=== PATIENT | female | born 1955 | race Caucasian/White ===

== ENCOUNTER → 2019-05-28 | Outpatient (CLI) | payer OTHER ==
[2019-05-28 13:58] LABS: BASO % 1 % (0-3); EOS # 0.1 x10^3/uL (0.0-0.7); EOS % 3 % (0-3); HEMATOCRIT 40.5 % (36.0-47.0); HEMOGLOBIN 13.6 g/dL (12.0-15.5); LYMPH # 0.8 x10^3/uL (1.0-4.8); LYMPH % 24 % (24-48); MEAN CORPUSCULAR HEMOGLOBIN 31 pg (25-35); MEAN CORPUSCULAR HGB CONC 34 g/dL (31-37); MEAN CORPUSCULAR VOLUME 92 fL (79-100); MONO # 0.3 x10^3/uL (0.0-1.1); MONO % 9 % (0-9); NEUT # 2.2 x10^3uL (1.8-7.7); NEUT % 63 % (31-73); PLATELET COUNT 194 x10^3/uL (140-400); RED BLOOD COUNT 4.42 x10^6/uL (3.50-5.40); RED CELL DISTRIBUTION WIDTH 13.5 % (11.5-14.5); WHITE BLOOD COUNT 3.4 x10^3/uL (4.0-11.0)
[2019-05-28 14:52] LABS: ALBUMIN 4.2 g/dL (3.4-5.0); ALBUMIN/GLOBULIN RATIO 1.3 (1.0-1.7); CALCIUM 9.4 mg/dL (8.5-10.1); CREATININE 0.8 mg/dL (0.6-1.0); GFR 72.7; POTASSIUM 4.5 mmol/L (3.5-5.1); TOTAL BILIRUBIN 0.4 mg/dL (0.2-1.0); TOTAL PROTEIN 7.4 g/dL (6.4-8.2)
[2019-05-28 14:56] LABS: CHOLESTEROL/HDL RATIO 3.1
[2019-05-28 15:00] LABS: FREE T4 0.93 ng/dL (0.76-1.46); THYROID STIM HORMONE (TSH) 1.627 uIU/mL (0.358-3.74)
[2019-05-29 01:07] LABS: RHEUMATOID FACTOR <10.0 IU/mL (0.0-13.9)
[2019-05-30 22:12] LABS: ANA INTERP Positive (.)
== END | disposition home or self-care (01) ==
LOC: LAB 13:24
PROVIDERS: ATTEND Family Medicine
DX: I10 Essential (primary) hypertension (principal); R63.5 Abnormal weight gain; M79.10 Myalgia, unspecified site; R76.8 Other specified abnormal immunological findings in serum
CPT/HCPCS: 36415; 80053; 80061; 84439; 84443; 85025; 85651; 86038; 86431

== ENCOUNTER → 2019-07-25 | Outpatient (CLI) | payer OTHER ==
--- NOTE | 2019-07-25 17:19 | RAD ---
Examination: SHOULDER 2+V LEFT History: Acute left shoulder pain Comparison/Correlation: None Findings: Total 3 images of the left shoulder were obtained. Joint spaces are normal. No acute fracture or bony destruction. No significant degenerative change. Mild osteopenia may be present. Soft tissues are unremarkable. Left upper lung field is unremarkable. Impression: No acute process. Electronically signed by: Ramon Ceron MD (07/25/2019 5:16 PM) [facility]
== END | disposition home or self-care (01) ==
LOC: RAD 12:21
PROVIDERS: ATTEND Family Medicine
DX: M25.512 Pain in left shoulder (principal)
CPT/HCPCS: 73030

== ENCOUNTER → 2019-08-08 | Outpatient (CLI) | payer OTHER ==
--- NOTE | 2019-08-08 16:43 | RAD ---
EXAM: Left knee, 3 views. HISTORY: Pain. COMPARISON: None. FINDINGS: 3 views of the left knee are obtained. There is no fracture, dislocation or subluxation. There is a small joint effusion. IMPRESSION: 1. No acute osseous finding. 2. Small left knee effusion. Electronically signed by: Maddie Solomon MD (08/08/2019 4:40 PM) [id number]
== END | disposition home or self-care (01) ==
LOC: RAD 15:32
PROVIDERS: ATTEND Family Medicine
DX: M25.462 Effusion, left knee (principal)
CPT/HCPCS: 73562

== ENCOUNTER → 2019-08-26 | Outpatient (CLI) | payer OTHER ==
--- NOTE | 2019-08-26 17:14 | RAD ---
Examination: MRI of the left knee without contrast HISTORY: History of left knee pain COMPARISON: None available TECHNIQUE: Multiplanar, multisequence MR imaging of the left knee was performed without contrast. FINDINGS: The anterior cruciate ligament the posterior cruciate ligament appear intact. There is horizontal increased signal identified in the body and posterior horn the medial meniscus with blunting of the posterior horn of the medial meniscus likely tear of the medial meniscus. There is minimal extrusion of the medial meniscus medially. The lateral meniscus appears intact. Moderate increased T2 signal identified about the medial collateral ligament likely edema. The lateral collateral ligamentous complex including the fibular collateral ligament, biceps femoris tendon, popliteus tendon appear intact. The extensor mechanism is intact. Moderate knee joint effusion. The medial retinaculum, lateral retinaculum appear intact. Small popliteal cyst. Moderate joint space loss identified in the medial, lateral, patellofemoral compartments. There is the deep fissuring of cartilage medial, lateral, patellofemoral compartments. IMPRESSION: 1. Tear of the medial meniscus with mild extrusion of the medial meniscus medially. 2. Mild edema identified about the medial collateral ligament likely sprain. 3. 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 4. Moderate knee joint effusion with a small popliteal cyst. Electronically signed by: Judson Rubio MD (08/26/2019 5:11 PM) [facility]
== END | disposition home or self-care (01) ==
LOC: MRI 14:44
PROVIDERS: ATTEND Family Medicine
DX: S83.242A Other tear of medial meniscus, current injury, left knee, initial encounter (principal); M25.462 Effusion, left knee; M94.262 Chondromalacia, left knee; M17.12 Unilateral primary osteoarthritis, left knee; M71.22 Synovial cyst of popliteal space [Baker], left knee; X58.XXXA Exposure to other specified factors, initial encounter; Y93.89 Activity, other specified; Y92.89 Other specified places as the place of occurrence of the external cause; Y99.8 Other external cause status
CPT/HCPCS: 73721

== ENCOUNTER → 2019-09-02 | Outpatient (CLI) | payer OTHER ==
[2019-09-03 12:10] LABS: C3 COMPLEMENT 139 mg/dL (82-167); C4 COMPLEMENT 19 mg/dL (14-44)
[2019-09-04 20:11] LABS: ANA INTERP Positive (.)
== END | disposition home or self-care (01) ==
LOC: LAB 15:12
PROVIDERS: ATTEND Internal Medicine Rheumatology
DX: R76.8 Other specified abnormal immunological findings in serum (principal)
CPT/HCPCS: 36415; 85651; 86038; 86140; 86160

== ENCOUNTER → 2019-10-29 | Outpatient (CLI) | payer OTHER ==
--- NOTE | 2019-10-30 11:01 | RAD ---
DATE: October 29, 2019 EXAM: MAMMO EVANS SCREENING BILATERAL HISTORY: Screening study. COMPARISON: 2015 and 2017 This study was interpreted with the benefit of Computerized Aided Detection (CAD). 2-D digital mammographic views of both breasts were performed in the CC and MLO projections. 3-D digital tomosynthesis images of both breasts were performed in the CC and MLO projections and reviewed on a computer workstation. FINDINGS: Breast Density: SCATTERED The breast parenchyma shows scattered fibroglandular densities. Breast parenchyma level B.. There are no dominant suspicious masses, suspicious microcalcifications or evidence of architectural distortion. IMPRESSION: No mammographic indicators for malignancy. BI-RADS CATEGORY: 1 NEGATIVE RECOMMENDED FOLLOW-UP: 12M 12 MONTH FOLLOW-UP PQRS compliance statement: Patient information was entered into a reminder system with a target due date October 30, 2020 for the next mammogram. Mammography is a sensitive method for finding small breast cancers, but it does not detect them all and is not a substitute for careful clinical examination. A negative mammogram does not negate a clinically suspicious finding and should not result in delay in biopsying a clinically suspicious abnormality. "Our facility is accredited by the [employer] Mammography Program." The patient's breast density may affect the ability of mammography to detect breast cancer. There are 4 categories of breast density, A, B, C and D. Breast density A means that most of the breast tissue is replaced with adipose tissue and therefore is not dense. Breast density B means that the breast tissue is mildly dense and scattered. Breast density C means that the breast tissue is heterogeneously dense. Breast density D means that the breast tissue is very dense. Breast densities especially C and D may decrease the sensitivity of mammography to detect breast cancer. Therefore, the patient may benefit from 3-D breast mammography (3D breast tomography) as a part of their screening mammogram. Insurance may or may not pay for this additional imaging. The patient's breast density based on today's mammogram is category B.
== END | disposition home or self-care (01) ==
LOC: MAMMO 08:27
PROVIDERS: ATTEND Family Medicine
DX: Z12.31 Encounter for screening mammogram for malignant neoplasm of breast (principal)
CPT/HCPCS: 77063; 77067

== ENCOUNTER → 2020-02-27 | Outpatient (CLI) | payer OTHER ==
[2020-02-27 14:06] LABS: FREE T4 0.85 ng/dL (0.76-1.46); THYROID STIM HORMONE (TSH) 1.586 uIU/mL (0.358-3.74)
== END ==
LOC: LAB 12:56
PROVIDERS: ATTEND Family Medicine
DX: R53.83 Other fatigue (principal)
CPT/HCPCS: 36415; 84439; 84443; 84480

== ENCOUNTER → 2020-05-11 | Outpatient (CLI) | payer OTHER ==
[2020-05-11 10:31] LABS: BASO % 1 % (0-3); EOS # 0.1 x10^3/uL (0.0-0.7); EOS % 4 % (0-3); HEMATOCRIT 39.8 % (36.0-47.0); HEMOGLOBIN 13.4 g/dL (12.0-15.5); LYMPH # 0.9 x10^3/uL (1.0-4.8); LYMPH % 24 % (24-48); MEAN CORPUSCULAR HEMOGLOBIN 30 pg (25-35); MEAN CORPUSCULAR HGB CONC 34 g/dL (31-37); MEAN CORPUSCULAR VOLUME 89 fL (79-100); MONO # 0.4 x10^3/uL (0.0-1.1); MONO % 11 % (0-9); NEUT # 2.2 x10^3/uL (1.8-7.7); NEUT % 60 % (31-73); PLATELET COUNT 180 x10^3/uL (140-400); RED BLOOD COUNT 4.46 x10^6/uL (3.50-5.40); RED CELL DISTRIBUTION WIDTH 13.6 % (11.5-14.5); WHITE BLOOD COUNT 3.6 x10^3/uL (4.0-11.0)
[2020-05-11 10:42] LABS: ALBUMIN 3.6 g/dL (3.4-5.0); C-REACTIVE PROTEIN 2.8 mg/L (0-3.3); CREATININE 0.9 mg/dL (0.6-1.0); GFR 63.2; POTASSIUM 4.6 mmol/L (3.5-5.1); TOTAL BILIRUBIN 0.3 mg/dL (0.2-1.0); TOTAL PROTEIN 7.1 g/dL (6.4-8.2)
[2020-05-11 10:43] LABS: CHOLESTEROL/HDL RATIO 3.2
== END ==
LOC: LAB 10:13
PROVIDERS: ATTEND Family Medicine
DX: I10 Essential (primary) hypertension (principal); E78.2 Mixed hyperlipidemia; R51 Headache
CPT/HCPCS: 36415; 80053; 80061; 85025; 86140

== ENCOUNTER → 2020-11-24 | Outpatient (CLI) | payer OTHER ==
--- NOTE | 2020-11-25 08:27 | RAD ---
DATE: 11/24/2020 12:24 PM EXAM: MAMMO EVANS SCREENING BILATERAL HISTORY: Screening COMPARISON: 10/29/2019 Bilateral CC and MLO views of the breasts were performed. Bilateral breast tomosynthesis was performed in CC and MLO projections. This study was interpreted with the benefit of Computerized Aided Detection (CAD). FINDINGS: Breast Density: SCATTERED The breast parenchyma shows scattered fibroglandular densities. Breast parenchyma level B No suspicious masses, microcalcifications or architectural distortion is present to suggest malignancy in either breast. The visualized axillae are unremarkable. IMPRESSION: No mammographic evidence of malignancy. BI-RADS CATEGORY: 1 NEGATIVE RECOMMENDED FOLLOW-UP: 12M 12 MONTH FOLLOW-UP Annual screening mammography is recommended, unless clinically indicated sooner based on symptoms or change in physical exam. PQRS compliance statement: Patient information was entered into a reminder system with a target due date for the next mammogram. Mammography is a sensitive method for finding small breast cancers, but it does not detect them all and is not a substitute for careful clinical examination. A negative mammogram does not negate a clinically suspicious finding and should not result in delay in biopsying a clinically suspicious abnormality. "Our facility is accredited by the [employer] Mammography Program."
== END ==
LOC: MAMMO 12:27
PROVIDERS: ATTEND Family Medicine
DX: Z12.31 Encounter for screening mammogram for malignant neoplasm of breast (principal)
CPT/HCPCS: 77063; 77067

== ENCOUNTER 2020-12-17 05:53 | Day surgery (SDC) | payer OTHER ==
--- NOTE | 2020-12-15 18:22 | PDOC1 ---
History and Physical Date of Admission Date of Admission 12/17/2020 Identification/Chief Complaint Chief Complaint Left knee pain Source Source: Chart review, Patient History of Present Illness History of Present Illness 65-year-old with left knee pain, which started in July 2019. She tried multiple treatments including cortisone injection, Supartz, and PRP injection. She has sharp pains and a sense of instability. An MRI which was done in August 2019 showed a medial meniscus tear that was extruded. X-rays show minimal changes of osteoarthritis. Past Medical History Cardiovascular: HTN Past Surgical History Past Surgical History Basal cell removal Past Surgical History: Hysterectomy Family History Family History: Cancer, Hypertension Social History Smoke: No ALCOHOL: occassional Current Problem List Problem List Complex tear of medial meniscus of left knee as current injury, initial encounter - S83.232A (Primary) Current Medications Current Medications amlodipine Cymbalta multivitamin Multiple Vitamins tablet 1 tab(s) orally once a day Tumeric 500mg 1 tab(s) daily MELOXICAM Allergies Allergies: Coded Allergies: No Known Drug Allergies (Unverified , 12/10/20) ROS Review of System OPHTHALMOLOGY: Blurred vision none. Double vision denies. Change in vision none. ENT: Hearing loss none. Change in voice denies. Rhinorrhea none. CARDIOLOGY: Palpitations none. Shortness of breath denies. Chest pain denies. CONSTITUTIONAL: Fever denies. Chills denies. Weight gain denies. Weakness none. allegra ght loss denies. Fatigue none. GASTROENTEROLOGY: Diarrhea denies. Vomiting none. Dysphagia none. UROLOGY: Voiding normally yes. Hematuria none. MUSCULOSKELETAL: Chronic back or neck pain denies. Swelling of the feet, hands, ankles and /or legs denies. Joint pain Left Knee. Tingling/numbness no. DERMATOLOGY: Rash denies. Lumps none. NEUROLOGY: Dizziness/lightheadedness denies. Double vision, temporary blindness denies. Tingling/numbness none. PSYCHOLOGY: Change in mood or personality denies. Memory loss none. ENDOCRINOLOGY: Obesity denies. Fatigue none. Weight loss none. HEMATOLOGY/LYMPH: Hepatitis denies. Enlarged lymph nodes denies. Physical Exam General: Alert, Cooperative HEENT: Atraumatic Lungs: Normal air movement Heart: RRR Abdomen: Soft Extremities: No cyanosis, No edema, Normal pulses, Other (The LEFT knee shows normal alignment, no masses and trace effusion. There is tenderness at the medial joint line with an equivocal medial Purnima's test. The lateral joint line shows no tenderness. Range of motion is 0-135 degrees. There is trace patellofemoral crepitus. Purnima's test is positive. There is medial joint line pain with deep flexion and especially with rotation of the tibia. The knee is stable to varus and valgus stress without subluxation or laxity. The ACL feels intact on Roxi testing. Muscle strength is normal (5/5) for quadriceps and hamstrings, and muscle tone is normal. The skin is normal with no scars, rashes, lesions or ulcers. Light touch sensation is intact. No edema and no varicosities. Dorsalis pedis pulse is intact and capillary refill is normal.) Skin: No breakdown, No significant lesion Neuro: Normal speech, Sensation intact Images Images Report reviewed and images independently reviewed MRI 08/2019. Medial meniscus tear on series 6 image 20. [facility] [address] [place] [address] IMAGING REPORT Signed PATIENT: CJ HELTON ACCOUNT: [id number] : 1955 LOCATION: MRI AGE: 64 SEX: F EXAM STATUS: REG CLI ORD. PHYSICIAN: WILL VILLAREAL MD REASON: L KNEE PAIN PROCEDURE: LOWER EXT JOINT WO LT Examination: MRI of the left knee without contrast HISTORY: History of left knee pain COMPARISON: None available TECHNIQUE: Multiplanar, multisequence MR imaging of the left knee was performed without contrast. FINDINGS: The anterior cruciate ligament the posterior cruciate ligament appear intact. There is horizontal increased signal identified in the body and posterior horn the medial meniscus with blunting of the posterior horn of the medial meniscus likely tear of the medial meniscus. There is minimal extrusion of the medial meniscus medially. The lateral meniscus appears intact. Moderate increased T2 signal identified about the medial collateral ligament likely edema. The lateral collateral ligamentous complex including the fibular collateral ligament, biceps femoris tendon, popliteus tendon appear intact. The extensor mechanism is intact. Moderate knee joint effusion. The medial retinaculum, lateral retinaculum appear intact. Small popliteal cyst. Moderate joint space loss identified in the medial, lateral, patellofemoral compartments. There is the deep fissuring of cartilage medial, lateral, patellofemoral compartments. IMPRESSION: 1. Tear of the medial meniscus with mild extrusion of the medial meniscus medially. 2. Mild edema identified about the medial collateral ligament likely sprain. 3. 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 4. Moderate knee joint effusion with a small popliteal cyst. Electronically signed by: Judson Rubio MD (08/26/2019 5:11 PM) [facility] DICTATED and SIGNED BY: JUDSON RUBIO MD DATE: 08/26/19 1714 Report reviewed and x-rays the images independently reviewed from 09/2019. The right knee actually has more osteophytic lipping than the left which is minimal. The left knee is the painful knee. [facility] [address] [place], [place] [id number] IMAGING REPORT Signed PATIENT: CJ HELTON ACCOUNT: [id number] MRN#: [id number] : 1955 LOCATION: [facility] AGE: 64 SEX: F EXAM STATUS: REG CLI ORD. PHYSICIAN: MOHAN BALLESTEROS II, MD REASON: PROCEDURE: KNEE STANDING BILAT AP Examination: KNEE LEFT 2V, KNEE STANDING BILAT AP History: left knee pain. no known injury Comparison/Correlation: None Findings: Bilateral AP standing view of the knees was provided. Lateral view of the left knee and patella sunrise view of the left knee was provided. Small left knee joint effusion is present. Mild spurring about the left patellofemoral compartment is present. Slight narrowing of the right medial compartment is present with spurring. Minimal spurring otherwise is seen involving the knees. No fracture or bone destruction. Impression: Small left knee joint effusion. Slight narrowing of the right knee medial compartment. Electronically signed by: Ramon Muro MD (10/10/2019 5:59 PM) [facility] DICTATED and SIGNED BY: RAMON MURO MD DATE: 10/10/19 0408 VTE Prophylaxis Ordered VTE Prophylaxis Devices: Yes VTE Pharmacological Prophylaxi: Yes Assessment/Plan Assessment/Plan Her MRI shows a medial meniscus tear. We reviewed her report together along with the risks, benefits, and alternatives to treatment. Given her failure of more co nservative measures and continued pain, my recommendation is arthroscopy with meniscectomy. We discussed potential risks of arthroscopic surgery, including risks of bleeding, infection, progressive arthritis, blood clots, or other potential surgical or anesthetic complications. We also discussed postoperative treatment and expectations including progression of arthritis following knee arthroscopy. More specifically, I explained that, although she may eventually warrant total knee arthroplasty, her symptoms much more-so overlap with meniscal pathology; in my opinion arthroscopy offers the best chance at symptom relief given her current state. All of her questions were answered and she desires to proceed with surgery. She is here today for elective left knee arthroscopy with medial meniscectomy. Justifications for Admission Other Justification CRISTHIAN COLE MD Dec 15, 2020 18:22
[~2020-12-17] VITALS: Ht 171.4 cm; Wt 86.0 kg
[~2020-12-17 05:53] MED LIST: AMLO-186 PO; CETI10TA16 PO; CHOL500050 PO; DULO30CA2 PO; MELO15TA23 PO; MULT-445 PO; ZINC50TA39 PO
[2020-12-17] MEDS ORDERED: PROPOFOL 10 MG/ML (20ML) VIAL. IV ONE (06:45)
[2020-12-17] MEDS ORDERED: LIDOCAINE 2% PF 5 ML VIAL. ONE (06:45)
[2020-12-17] MEDS ORDERED: fentaNYL PF VIAL 100 MCG/2 ML VIAL ONE ×2 (06:45→08:33)
[2020-12-17] MEDS ORDERED: MORPHINE SULFATE 2 MG/ML VIAL. IV PRN (07:00)
[2020-12-17] MEDS ORDERED: ONDANSETRON PF 4 MG/2 ML VIAL. IV PRN (07:00)
[2020-12-17] MEDS ORDERED: IV RINGERS,LACTATED 1000ML 1,000 ML IV SCH (07:00)
[2020-12-17] MEDS ORDERED: fentaNYL PF VIAL 100 MCG/2 ML VIAL IV PRN ×2 (07:00)
[2020-12-17] MEDS ORDERED: LIDOCAINE 1% PF 2 ML VIAL. ID PRN (07:00)
[2020-12-17] MEDS ORDERED: HYDROmorphone 2 MG/ML VIAL IV PRN (07:00)
[2020-12-17] MEDS ORDERED: PROCHLORPERAZINE 10 MG/2 ML VIAL. IV PRN (07:00)
[2020-12-17] MEDS ORDERED: EPINEPHrine VIAL 30 MG/30 ML VIAL ONE (07:06)
[2020-12-17] MEDS ORDERED: BUPIVACAINE-EPI 0.25% 30 ML VIAL KIT. ONE (07:06)
[2020-12-17] MEDS ORDERED: methylPREDNISolone ACETATE 80 MG/ML VIAL. ONE (07:21)
[2020-12-17] MEDS ORDERED: SEVOFLURANE 16 TO 30 MINUTES. IH ONE (07:30)
[2020-12-17] MEDS ORDERED: DEXAMETHASONE SOD PHOS 4 MG/ML VIAL ONE (07:30)
[2020-12-17] MEDS ORDERED: ONDANSETRON PF 4 MG/2 ML VIAL. ONE (07:48)
[2020-12-17] MEDS: BUPIVACAINE-EPI 0.25% 30 ML VIAL KIT. ONE ×2 (07:49→07:50)
--- NOTE | 2020-12-17 08:42 | PDOC4 ---
Operative Note Operative Note Date of Procedure: December 17, 2020 Preoperative Diagnosis: left knee medial meniscus tear, right knee osteoarthritis Postoperative Diagnosis: * complex tear of medial meniscus, current injury, left knee, initial encounter S83.232A * complex tear of lateral meniscus, current injury, left knee, initial encounter S83.272A * right knee osteoarthritis Procedures Performed: * left knee arthroscopy, surgical, with meniscectomy, medial AND lateral, i ncluding meniscal shaving, including debridement/shaving of articular cartilage (chondroplasty) CPT 29598 * right knee aspiration and corticosteroid injection Surgeon: Cristhian Salcedo MD Safety Patrol Officer: HIRAM Lindo Anesthesia: General Estimated Blood Loss: 5 mL Specimens: none Drains: none Complications: none Tourniquet time: 30 minutes at 300 mm Hg Indications for Procedure: The patient is a 65-year-old with left knee pain, unrelieved with nonoperative treatment. Exam and MRI are consistent with a meniscus tear. We talked about the risks and benefits of proceeding with an arthroscopic procedure. We talked about potential risks of ongoing pain, progressive arthritis, bleeding, infection, blood clots, or other potential surgical or anesthetic complications. All of the patient's questions about surgery were answered and she desired to proceed. Since I saw her in the office, the right knee which had some osteoarthritis radiographically has flared up. We discussed that she will need to be putting more weight on the right knee postoperatively after the left knee scope. We discussed a cortisone injection of the right knee and she agrees with that plan, to be done intraoperatively. Written consent was obtained. Description of Operation: The patient was identified in the preoperative holding area. The correct left knee was marked by me. The patient was taken to the operating room, where a general anesthetic was used. Preoperative antibiotics were given intravenously. A time-out procedure was performed. Under sterile technique and after chlorhexidine prep, the right knee was aspirated and then injected using 80 mg of Depo-Medrol, and 1 mL of 0.25% bupivacaine. A tourniquet was placed on the upper left thigh. Local anesthetic 20 mL of 0.25% bupivacaine was injected using sterile technique into the knee joint. The limb was prepared circumferentially with ChloraPrep solution and sterile waterproof arthroscopy drapes were applied. The limb was exsanguinated with an Esmarch bandage and the tourniquet was inflated. Lateral and medial arthroscopy portals were established. The medial meniscus showed a complex unrepairable tear with unstable flaps. A meniscectomy was performed with basket forceps and the motorized shaver back to a smooth stable base, and the resection tapered into the middle one-third of the meniscus.The medial tibiofemoral joint showed chondromalacia Outerbridge grade III and IV, and a shaving chondroplasty was performed removing unstable fragments of cartilage with the motorized shaver.The intercondylar notch was free of loose bodies, and the ACL was intact. The lateral tibiofemoral joint showed a complex unrepairable meniscus tear, and a meniscectomy was performed with basket forceps and the motorized shaver back to a smooth stable base.The lateral articular surfaces showed chondromalacia Outerbridge grade III, and a shaving chondroplasty was performed removing unstable fragments of cartilage with the shaver. The patellofemoral joint showed chondromalacia Outerbridge grade III, and a s having chondroplasty was performed removing unstable fragments of cartilage with the shaver. The suprapatellar pouch, medial and lateral gutters were free of loose bodies. Copious irrigation was used to drain all meniscal and chondral fragments, and the knee was drained of fluid. The portals were closed with #3-0 Prolene interrupted sutures. Additional local anesthetic, 30 mL of 0.25% bupivacaine with epinephrine was injected. A bulky sterile dressing was applied and the tourniquet was released. Needle and sponge counts were correct and there were no apparent complications. CRISTHIAN SALCEDO MD Dec 17, 2020 08:42
[2020-12-17] MEDS ORDERED: HYDROcodone/APAP 7.5/325MG 1 TAB TABLET PO ONE (09:30)
[2020-12-17 09:55] VITALS: BP 152/69
--- NOTE | 2020-12-18 13:52 | NUR ---
IP: Pt had knee on 12/17/20 with preop COVID negative antigen. Specimen nest for PCR and returned positive. Informed pt of results and need to quarantine for 10 days.
== END 2020-12-17 10:55 | disposition home or self-care (01) ==
LOC: SURG 05:53
PROVIDERS: ATTEND Orthopaedic Surgery
DX: S83.232A Complex tear of medial meniscus, current injury, left knee, initial encounter (principal); S83.272A Complex tear of lateral meniscus, current injury, left knee, initial encounter; I10 Essential (primary) hypertension; F32.9 Major depressive disorder, single episode, unspecified; Z90.710 Acquired absence of both cervix and uterus; Z98.51 Tubal ligation status; Z72.89 Other problems related to lifestyle; Z79.899 Other long term (current) drug therapy; Z98.890 Other specified postprocedural states; X58.XXXA Exposure to other specified factors, initial encounter; Y93.89 Activity, other specified; Y92.89 Other specified places as the place of occurrence of the external cause; Y99.8 Other external cause status
CPT/HCPCS: 29880; 87426; C9803; J0171; J0690; J1040; J1100; J2405; J2704; J3010; U0003

== ENCOUNTER → 2021-03-17 | Outpatient (CLI) | payer OTHER ==
[2021-03-17 10:13] LABS: BASO # 0.1 x10^3/uL (0.0-0.2); BASO % 1 % (0-3); EOS # 0.1 x10^3/uL (0.0-0.7); EOS % 2 % (0-3); HEMOGLOBIN 12.4 g/dL (12.0-15.5); LYMPH % 19 % (24-48); MEAN CORPUSCULAR HEMOGLOBIN 30 pg (25-35); MEAN CORPUSCULAR HGB CONC 34 g/dL (31-37); MEAN CORPUSCULAR VOLUME 90 fL (79-100); MONO # 0.5 x10^3/uL (0.0-1.1); MONO % 9 % (0-9); NEUT # 3.7 x10^3/uL (1.8-7.7); NEUT % 69 % (31-73); PLATELET COUNT 241 x10^3/uL (140-400); RED BLOOD COUNT 4.13 x10^6/uL (3.50-5.40); RED CELL DISTRIBUTION WIDTH 13.9 % (11.5-14.5); WHITE BLOOD COUNT 5.4 x10^3/uL (4.0-11.0)
[2021-03-17 10:24] LABS: ALBUMIN/GLOBULIN RATIO 1.3 (1.0-1.7); CALCIUM 9.1 mg/dL (8.5-10.1); CREATININE 0.8 mg/dL (0.6-1.0); GFR 72.2; POTASSIUM 4.9 mmol/L (3.5-5.1); TOTAL BILIRUBIN 0.4 mg/dL (0.2-1.0); TOTAL PROTEIN 7.2 g/dL (6.4-8.2)
[2021-03-17 10:29] LABS: CHOLESTEROL/HDL RATIO 2.6
[2021-03-17 10:35] LABS: FREE T4 0.92 ng/dL (0.76-1.46); THYROID STIM HORMONE (TSH) 1.636 uIU/mL (0.358-3.74)
== END ==
LOC: LAB 08:28
PROVIDERS: ATTEND Family Medicine
DX: E78.2 Mixed hyperlipidemia (principal); I10 Essential (primary) hypertension; M79.7 Fibromyalgia; R53.83 Other fatigue
CPT/HCPCS: 36415; 80053; 80061; 84439; 84443; 85025

== ENCOUNTER → 2021-05-31 | Outpatient (CLI) | payer OTHER ==
[2021-05-31] MEDS: IOHEXOL 350 MG/ML 100 ML VIAL. IV ONE (14:15)
--- NOTE | 2021-05-31 17:30 | RAD ---
PQRS Compliance Statement: One or more of the following individualized dose reduction techniques were utilized for this examinat ion: 1. Automated exposure control 2. Adjustment of the mA and/or kV according to patient size 3. Use of iterative reconstruction technique CTA HEAD, CT ORBITS/SELLA WITHOUT CONTRAST 05/31/2021 2:10 PM INDICATION: Pulsatile tinnitus of the years. COMPARISON: None available TECHNIQUE: Multiple axial CT images of the temporal bones were obtained without intravenous contrast. Multiple axial CT images of the head were obtained after the intravenous administration of nonionic contrast. Coronal and sagittal reformats are provided. Maximum intensity projection images are provid ed. Stenosis calculations for CT, MR, and conventional angiography are based upon measurements of the dis naman ICA diameter in accordance with the NASCET methodology. Stenosis calculations for carotid ultraso und studies are derived from validated velocity criteria which are known to correlate with the NASCET methodology. FINDINGS: Ventricles, sulci and basal cisterns are normal in appearance. Rader-white matter differentiation is p reserved. There is no mass, mass effect or midline shift. Posterior fossa is normal in appearance. Se lla and suprasellar cistern appear normal. Orbits are normal in appearance with exception of bilatera l lens replacement. Scalp and calvaria appear intact. Paranasal sinuses are well aerated. Mastoid air cells are well aerated. Skull base neural foramina are in appropriate position. Right: External auditory canal is normal. There is no retraction of the tympanic membrane. There is n o erosion of the scutum. Middle ear ossicles are normal in morphology. No fluid or soft tissue identi fied within the middle ear cavity. Tegmen tympani is intact. 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 Cochlea is intact. Internal auditory canal is normal. There is no enlargement of the vestibular cochlear aqueducts. Mastoid air cells are well a erated. Jugular bulb is in appropriate position. Left: External auditory canal is normal. There is no retraction of the tympanic membrane. There is no erosion of the scutum. Middle ear ossicles are normal in morphology. No fluid or soft tissue identif ied within the middle ear cavity. Tegmen tympani is intact. There is suggestion of dehiscence of the left superior semicircular canal (series 6, image 106). Cochlea is intact. Internal auditory canal is normal. There is no enlargement of the vestibular cochlear aqueducts. Mastoid air cells are well aer ated. Jugular bulb is in appropriate position. Vascular findings: Intracranial segments of internal carotid arteries are normal in course and caliber. There is mild ca lcified atheromatous plaque involving the cavernous segments without significant stenosis. Origins of the ophthalmic segments of the internal carotid artery appears widely patent. Middle cerebral arteri es are normal in course and caliber with patent sylvian branches. Anterior cerebral arteries are nor mal in course and caliber. Anterior communicating artery is visualized. Basilar artery is normal in course and caliber. Superior cerebellar arteries are widely patent. Poste rior cerebral arteries are normal in course and caliber. Left vertebral artery is dominant. There is no aneurysm, vascular malformation or high-grade stenosis/large vessel occlusion involving c [place] of [place]. Superior sagittal sinus is patent. IMPRESSION: 1. 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 No suspicious vascular anomal y. 2. There is no aneurysm, vascular malformation or high-grade stenosis/large vessel occlusion involvin g the [place]. Electronically signed by: Tamera Zaraet MD (05/31/2021 5:28 PM) [id number]
[2021-08-04] MEDS: IOHEXOL 350 MG/ML 100 ML VIAL. IV ONE (12:29)
== END ==
LOC: CT 13:59
PROVIDERS: ATTEND Otolaryngology
DX: H93.A3 Pulsatile tinnitus, bilateral (principal)
CPT/HCPCS: 70480; 70496; Q9967

== ENCOUNTER → 2021-11-28 | Outpatient (CLI) | payer OTHER ==
--- NOTE | 2021-11-28 12:09 | RAD ---
Bilateral digital screening 2-D and 3-D (digital breast tomosynthesis) mammogram: Reason for examination: Routine screening. Comparison: Mammograms from 11/24/2020 and 10/29/2019. Interpretation was made with the benefit of CAD. FINDINGS: Breast density: Category B. There are scattered areas of fibroglandular density. No suspicious breast mass, malignant appearing calcifications, or architectural distortion is seen. IMPRESSION: No evidence of malignancy. Assessment: BI-RADS 1. Negative. Recommendation: Routine screening mammograms. The patient will receive a letter with the results in the mail. Patient information will be entered i nto the mammography reminder system with a target recall date for the next mammogram. A reminder rian er will be generated. Electronically signed by: Claudia Avila MD (11/28/2021 12:06 PM) [id number]
== END ==
LOC: MAMMO 09:34
PROVIDERS: ATTEND Family Medicine
DX: Z12.31 Encounter for screening mammogram for malignant neoplasm of breast (principal)
CPT/HCPCS: 77063; 77067